=== PATIENT | female | born 1995 | race Caucasian/White ===

== ENCOUNTER 2018-04-18 13:58 | Emergency (ER) | payer BC, OTHER ==
[2018-04-18] MEDS: IV NORMAL SALINE 1000ML BAG 1,000 ML IV (14:38)
[2018-04-18 14:41] LABS: ADD MAN DIFF? NO
[2018-04-18 14:45] LABS: BASO % 1 % (0-3); EOS # 0.1 x10^3/uL (0.0-0.7); EOS % 1 % (0-3); HEMATOCRIT 41.9 % (36.0-47.0); HEMOGLOBIN 13.9 g/dL (12.0-15.5); LYMPH # 2.4 x10^3/uL (1.0-4.8); LYMPH % 34 % (24-48); MEAN CORPUSCULAR HEMOGLOBIN 30 pg (25-35); MEAN CORPUSCULAR HGB CONC 33 g/dL (31-37); MEAN CORPUSCULAR VOLUME 90 fL (79-100); MONO # 0.6 x10^3/uL (0.0-1.1); MONO % 8 % (0-9); NEUT # 4.1 x10^3uL (1.8-7.7); NEUT % 57 % (31-73); PLATELET COUNT 275 x10^3/uL (140-400); RED BLOOD COUNT 4.64 x10^6/uL (3.50-5.40); RED CELL DISTRIBUTION WIDTH 14.9 % (11.5-14.5); WHITE BLOOD COUNT 7.2 x10^3/uL (4.0-11.0)
[2018-04-18 15:03] LABS: ANION GAP 10 (6-14); BLOOD UREA NITROGEN 10 mg/dL (7-20); BUN/CREATININE RATIO 13 (6-20); CALCIUM 8.9 mg/dL (8.5-10.1); CARBON DIOXIDE 24 mmol/L (21-32); CHLORIDE 105 mmol/L (98-107); CREATININE 0.8 mg/dL (0.6-1.0); GFR 90.5; GLUCOSE 99 mg/dL (70-99); POTASSIUM 4.2 mmol/L (3.5-5.1); SODIUM 139 mmol/L (136-145)
[2018-04-18 15:09] LABS: ALBUMIN/GLOBULIN RATIO 1.2 (1.0-1.7); ALK PHOS 91 U/L (46-116); ALT (SGPT) 41 U/L (14-59); AST (SGOT) 20 U/L (15-37); MAGNESIUM 1.9 mg/dL (1.8-2.4); TOTAL BILIRUBIN 0.5 mg/dL (0.2-1.0); TOTAL PROTEIN 7.4 g/dL (6.4-8.2)
[2018-04-18 15:17] LABS: THYROID STIM HORMONE (TSH) 2.429 uIU/mL (0.358-3.74); TROPONINI < 0.017 ng/mL (0.000-0.055)
[2018-04-18 15:18] LABS: NT-PRO BNP 13 pg/mL (0-124)
[2018-04-18 15:18] LABS: CKMB MASS < 0.5 ng/mL (0.0-3.6); CREATINE KINASE 66 U/L (26-192)
[2018-04-18 15:36] LABS: URINE HCG POC HCG NEGATIVE (Negative)
[2018-04-18 15:41] LABS: AMPHETAMINE/METHAMPHETAMINE NEG (NEG); BARBITURATES NEG (NEG); BENZODIAZEPINES NEG (NEG); CANNABINOIDS NEG (NEG); COCAINE NEG (NEG); ETHANOL, URINE NEG (NEG); METHADONE NEG (NEG); OPIATES NEG (NEG); PHENCYCLIDINE NEG (NEG)
[2018-04-18 15:43] LABS: BILIRUBIN,URINE NEGATIVE (NEG); CLARITY,URINE CLEAR; COLOR,URINE YELLOW; GLUCOSE,URINE NEGATIVE (NEG); NITRITE,URINE NEGATIVE (NEG); PROTEIN,URINE NEGATIVE (NEG-TRACE); UROBILINOGEN,URINE 0.2 mg/dL (0.2 mg/dL)
[2018-04-18] MEDS: PROCHLORPERAZINE 10 MG/2 ML VIAL. IV (15:48)
[2018-04-18] MEDS: ACETAMINOPHEN 500 MG TABLET PO (15:48)
[2018-04-18] MEDS: diazePAM 5 MG TABLET PO (15:48)
[2018-04-18 15:49] LABS: BACTERIA,URINE MANY /HPF (0-FEW); RBC,URINE 0 /HPF (0-2); SQUAMOUS EPITHELIAL CELL,UR MANY /LPF; WBC,URINE OCC /HPF (0-4)
[2018-04-18] MEDS: MECLIZINE HCL 12.5 MG TABLET. PO (15:49)
[2018-04-18] MEDS: KETOROLAC 30 MG/ML INJ. IV (15:49)
== END 2018-04-18 18:10 | disposition home or self-care (01) ==
LOC: ER 18:10
DX: R07.89 Other chest pain (principal); R00.2 Palpitations
CPT/HCPCS: 36415; 71045; 80053; 80307; 81001; 81025; 82553; 83735; 83880; 84443; 84484; 85025; 93005; 96374; 96375; 99285-25; J0780; J1885; J7030; J8597